=== PATIENT | female | born 1975 | race Caucasian/White ===

== ENCOUNTER 2020-11-14 21:41 | Emergency (ER) | payer MEDICAID ==
[~2020-11-14] VITALS: Ht 170.2 cm; Wt 91.9 kg
--- NOTE | 2020-11-14 23:16 | NUR ---
PATIENT REPORTS PAIN AND SWELLING STARTING IN LOWER LEFT JAW IN THE LAST 24 HOURS. PATIENT STATES SHE LOST A CROWN ON A TOOTH "A WHILE AGO" AND HAS NOT HAD ANY PROBLEMS UNTIL LAST NIGHT. PATIENT REPORTS TRYING IBUPROFEN AND WARM SALT WATER RINSES WITH NO IMPROVEMENT. PATIENT STATES SHE USED TO USE METH BUT HAS BEEN "CLEAN FOR 100 DAYS". PAIN CURRENTLY 8/10 TO LEFT SIDE OF FACE.
[2020-11-14 23:18] VITALS: BP 154/102
--- NOTE | 2020-11-14 23:37 | NUR ---
Patient given discharge instructions and they have confirmed that they understand the instructions. Patient ambulatory with steady gait. NAD, all questions answered appropriately, denies additional needs at this time. No personal belongings left in room after discharge.
== END 2020-11-14 23:45 | disposition home or self-care (01) ==
LOC: ED 22:00
DX: K02.9 Dental caries, unspecified (principal); F17.210 Nicotine dependence, cigarettes, uncomplicated; Z90.710 Acquired absence of both cervix and uterus
CPT/HCPCS: 99283; 99406

== ENCOUNTER 2021-01-05 14:36 | Emergency (ER) | payer MEDICAID ==
[~2021-01-05] VITALS: Ht 170.2 cm; Wt 90.0 kg
[2021-01-05] MEDS ORDERED: SODIUM CHLORIDE FLUSH 10ML SYR IVF ONE (15:00)
[2021-01-05] MEDS ORDERED: ALBUTEROL/IPRATROPIUM 2.5MG/0.5MG, 3 ML NPPB PRN (15:00)
[2021-01-05] MEDS ORDERED: methylPREDNISolone SOD SUCC 125 MG/2 ML IV ONE (15:00)
--- NOTE | 2021-01-05 15:15 | NUR ---
BREAK RN: ASSUMED CARE OF PT AT THIS TIME. IV PLACED. LABS DRAWN. PT WITH MODERATE WORK OF BREATHING, ABLE TO SPEAK IN 5+ WORD SENTENCES. PT WITH EXPIRATORY WHEEZING ON AUSC. DENIES ANY PAIN, CP, N/V/D, FEVER, CHILLS OR COVID EXPOSURE. CONT PULSE OX, BP, CARDIAC MONITORS REMAIN IN PLACE. SR ON MONITOR. BP ELEVATED. PT ANXIOUS. DR. GUERRA AWARE OF VITALS, NO NEW ORDERS RECEIVED. MD AT BEDSIDE FOR EVAL. CALL LIGHT IN REACH. FALL PRECAUTIONS IN PLACE. A&OX4.
[2021-01-05] MEDS ORDERED: methylPREDNISolone SOD SUCC 125 MG/2 ML ONE (15:28)
[2021-01-05] MEDS ORDERED: ALBUTEROL/IPRATROPIUM 2.5MG/0.5MG, 3 ML ONE (15:33)
--- NOTE | 2021-01-05 15:37 | NUR ---
BREAK RN: BEDSIDE REPORT AND CARE BACK TO BRISEIDA RODRIGUEZ. DUO-NEB STARTED THIS TIME BY BRISEIDA RODRIGUEZ. PT TOLERATING WELL. CONTINUES USING CELL PHONE. VSS. CALL LIGHT IN REACH.
--- NOTE | 2021-01-05 15:46 | NUR ---
REPORT FROM DAYTON RODRIGUEZ- NEB INFUSING- WILL CONTINUE TO MONITOR
--- NOTE | 2021-01-05 15:52 | NUR ---
POST NEBULIZER WHEEZING/WOB DRASTICALLY IMPROVED. NOW ONB ROOM AIR AT 94%, RR12
[2021-01-05 17:16] VITALS: BP 127/84
== END 2021-01-05 17:19 | disposition home or self-care (01) ==
LOC: ED 17:06
DX: J45.41 Moderate persistent asthma with (acute) exacerbation (principal); R00.0 Tachycardia, unspecified; R06.02 Shortness of breath; F17.200 Nicotine dependence, unspecified, uncomplicated; Z90.710 Acquired absence of both cervix and uterus
CPT/HCPCS: 71045; 94640; 96374; 99283; J2930